=== PATIENT | male | born 1945 | race Caucasian/White ===

== ENCOUNTER 2021-02-17 22:17 | Inpatient (IN) | payer MEDICARE, OTHER ==
[~2021-02-17] VITALS: Ht 172.7 cm; Wt 93.4 kg
[2021-02-17 23:14] LABS: HEMATOCRIT 37.2 % (36.7-47.1); MEAN CORPUSCULAR HEMOGLOBIN 32.8 uug (23.8-33.4); MEAN CORPUSCULAR VOLUME 96.9 fL (73.0-96.2); PLATELET COUNT (AUTO) 216 K/uL (152-348)
[2021-02-17 23:24] LABS: CREATININE 0.8 mg/dL (0.6-1.3); POTASSIUM 3.9 mmol/L (3.5-5.1)
[2021-02-17 23:36] LABS: BILIRUBIN,DIRECT 0.1 mg/dL (0.0-0.2); BILIRUBIN,TOTAL 0.4 mg/dL (0.2-1.0); TOTAL PROTEIN, SERUM 7.3 g/dL (6.4-8.2)
[2021-02-18] VITALS (9 sets, daily range): BP systolic 142–177; BP diastolic 69–103
[2021-02-18] MEDS ORDERED: MAGNESIUM HYDROXIDE 30 ML LIQUID UDC PO PRN (00:30)
[2021-02-18] MEDS ORDERED: Z GUARD REMEDY PASTE 57 GM TUBE TOP PRN (00:30)
[2021-02-18] MEDS ORDERED: ONDANSETRON 4 MG/2 ML VIAL IV PRN (00:30)
[2021-02-18 00:36] LABS: *BILIRUBIN,URIN NEGATIVE (NEGATIVE); *BLOOD, URINE NEGATIVE (NEGATIVE); *CLARITY,URINE CLEAR (CLEAR); *COLOR,URINE YELLOW (YELLOW); *KETONES,URINE NEGATIVE (NEGATIVE); *UROBILINOGEN,URINE 0.2 E.U./dl (NORMAL); LEUKOCYTE ESTERASE ,URINE TRACE (NEGATIVE); NITRITE, URINE NEGATIVE (NEGATIVE); UGLUCOSE NEGATIVE (NEGATIVE)
[2021-02-18 00:43] LABS: RBC,URINE 0-3 /HPF (0-3)
[2021-02-18 00:44] LABS: BACTERIA,URINE NONE SEEN /HPF (NONE SEEN); SQUAMOUS EPITHELIAL CELL,UR FEW /HPF (NONE SEEN)
[2021-02-18] MEDS ORDERED: LABETALOL HCL 100 MG/20 ML VIAL ONE (01:14)
[2021-02-18] MEDS ORDERED: LABETALOL HCL 100 MG/20 ML VIAL IV ONE (01:15)
[2021-02-18] MEDS: IV NS 1000 ML 1,000 ML IV PRN (02:20)
[2021-02-18] MEDS: ENOXAPARIN SODIUM 40 MG/0.4 ML DISP.SYRIN SQ SCH ×2 (02:22→21:25)
[2021-02-18] MEDS: ACETAMINOPHEN 325 MG TABLET PO PRN ×2 (02:23→09:55)
[2021-02-18] MEDS: hydrALAZINE HCL 20 MG/1 ML VIAL IV PRN ×3 (04:45→21:52)
[2021-02-18] MEDS ORDERED: ASPIRIN/ACETAMINOPHEN/CAFFEINE TABLET PO PRN (14:15)
[2021-02-18] MEDS: SUCRALFATE 1 G TABLET PO SCH ×2 (17:58→21:24)
[2021-02-18] MEDS: AMLODIPINE 5 MG TABLET PO SCH (17:58)
[2021-02-19 04:20] VITALS: BP 164/90
[2021-02-19] MEDS: PANTOPRAZOLE SODIUM 40 MG TABLET.DR PO SCH (06:51)
[2021-02-19 07:36] LABS: HEMATOCRIT 38.5 % (36.7-47.1); MEAN CORPUSCULAR HEMOGLOBIN 32.8 uug (23.8-33.4); MEAN CORPUSCULAR VOLUME 97.5 fL (73.0-96.2); PLATELET COUNT (AUTO) 248 K/uL (152-348)
[2021-02-19 07:46] LABS: CREATININE 0.7 mg/dL (0.6-1.3); MAGNESIUM 1.8 mg/dL (1.8-2.4); PHOSPHOROUS 2.2 mg/dL (2.5-4.9)
[2021-02-19] MEDS: SUCRALFATE 1 G TABLET PO SCH ×4 (09:00→20:49)
[2021-02-19] MEDS: AMLODIPINE 5 MG TABLET PO SCH (09:01)
[2021-02-19 12:00] VITALS: BP 165/91
[2021-02-19] MEDS: CEphaleXIN 250 MG CAPSULE PO SCH ×2 (13:50→22:34)
[2021-02-19] MEDS: hydrALAZINE HCL 20 MG/1 ML VIAL IV PRN (13:50)
[2021-02-19] MEDS ORDERED: NEUTRA PHOS PACKET PO ONE (15:30)
[2021-02-19] MEDS: IV NS 1000 ML 1,000 ML IV PRN (15:46)
[2021-02-19 16:30] VITALS: BP 137/87
[2021-02-19 20:12] VITALS: BP 126/67
[2021-02-19] MEDS: ENOXAPARIN SODIUM 40 MG/0.4 ML DISP.SYRIN SQ SCH (20:48)
[2021-02-20 04:09] VITALS: BP 156/96
[2021-02-20] MEDS: PANTOPRAZOLE SODIUM 40 MG TABLET.DR PO SCH (06:19)
[2021-02-20] MEDS: CEphaleXIN 250 MG CAPSULE PO SCH ×2 (06:20→13:08)
[2021-02-20 07:35] LABS: CREATININE 0.7 mg/dL (0.6-1.3); MAGNESIUM 1.9 mg/dL (1.8-2.4); POTASSIUM 3.4 mmol/L (3.5-5.1)
[2021-02-20 07:36] LABS: MEAN CORPUSCULAR HEMOGLOBIN 32.9 uug (23.8-33.4); MEAN CORPUSCULAR VOLUME 97.5 fL (73.0-96.2); PLATELET COUNT (AUTO) 236 K/uL (152-348)
[2021-02-20] MEDS: SUCRALFATE 1 G TABLET PO SCH ×2 (08:10→10:47)
[2021-02-20] MEDS: AMLODIPINE 5 MG TABLET PO SCH (08:10)
[2021-02-20] MEDS ORDERED: POTASSIUM CHLORIDE 20 MEQ TAB.PRT.SR PO ONE (10:15)
[2021-02-20 11:46] VITALS: BP 130/79
== END 2021-02-20 15:10 | disposition home health service (06) | DRG 641 ==
LOC: ER 22:21 → MEDSURG3 02-18 01:05
PROVIDERS: ADMIT Nurse Practitioner Acute Care; ATTEND Nurse Practitioner Acute Care
DX: E86.0 Dehydration (principal); G91.9 Hydrocephalus, unspecified; R62.7 Adult failure to thrive; R53.1 Weakness; M17.11 Unilateral primary osteoarthritis, right knee; F41.9 Anxiety disorder, unspecified; I10 Essential (primary) hypertension; Z68.31 Body mass index [BMI] 31.0-31.9, adult; Z20.822 Contact with and (suspected) exposure to COVID-19
CPT/HCPCS: 36415; 70030-TC; 70450; 71045; 83605; 83735; 84100; 85025; 93005; 97161; A4663; A9150; G0378; J0360; J1650; J3490; J7030